=== PATIENT | female | born 1965 | race African-American/Black ===

== ENCOUNTER 2021-04-17 08:59 | Outpatient (CLI) | payer MEDICARE, BC, SELFPAY ==
--- NOTE | ~2021-04-17 | XR_ITS ---
EXAMINATION: XR knee RT 3V DATE: 04/17/2021 09:36 INDICATION: Right knee pain. TECHNIQUE: 3 views of right knee were obtained. COMPARISON: None. FINDINGS: Bone alignment is normal. No fracture. There is mild osteoarthritis of medial and patellofe moral compartments characterized by tiny marginal osteophytes. No knee joint effusion. IMPRESSION: 1. Mild right knee osteoarthritis. Reviewed, dictated and finalized at location A.
--- NOTE | ~2021-04-17 | XR_ITS ---
XR hip RT min 2V DATE: 04/17/2021 09:36 INDICATION: Right hip pain. Fall one year ago. TECHNIQUE: AP and lateral views of right hip COMPARISON: None FINDINGS: Probable healed right inferior pubic ramus fracture. No fracture or dislocation, avascular necrosis or bone destruction of the right hip is noted. Normal alignment at the pubic symphysis and sacroiliac joints.. IMPRESSION: Probable old healed right inferior pubic ramus fracture Reviewed, dictated and finalized at location B.
== END 2021-04-17 09:00 | disposition home or self-care (01) ==
PROVIDERS: PCP Family Medicine; Visit Provider Family Medicine
DX: M25.561 Pain in right knee (principal); M25.551 Pain in right hip; M17.11 Unilateral primary osteoarthritis, right knee
CPT/HCPCS: 73502; 73562

== ENCOUNTER 2024-01-10 08:13 | Outpatient (CLI) | payer MEDICARE, SELFPAY ==
--- NOTE | ~2024-01-10 | MR_ITS ---
MRI of the lumbar spine Clinical History: Chronic pain Technique: Axial T2-weighted images, and sagittal T1-weighted, T2-weighted, and and T2 fat-sat images were acquired. Findings: There is no fracture or subluxation of the lumbar spine. Vertebral bodies maintain normal h eight and alignment. No suspicious bone marrow signal abnormality seen. Intraosseous hemangioma of L3 noted. At L1-L2, L2-L3, L3-L4, L4-L5, there is no disc bulge or herniation. There is moderate to advanced fa cet joint degenerative changes these levels, worst at L4-L5. No spinal canal stenosis or neural alvaro inal narrowing at these levels. At L5-S1, there is mild degenerative disc narrowing with mild diffuse disc bulge and mild facet arthr opathy. No central canal stenosis. There is mild right neural foraminal narrowing, and mild to modera te left neural foraminal narrowing. Paravertebral soft tissues are unremarkable. Impression: Mild degenerative spondylosis, as above, worst at L5-S1. Reviewed, dictated and finalized at [facility]. Impression: Mild degenerative spondylosis, as above, worst at L5-S1.
== END 2024-01-10 08:14 ==
PROVIDERS: PCP Family Medicine; Visit Provider Family Medicine
DX: M47.897 Other spondylosis, lumbosacral region (principal); G89.4 Chronic pain syndrome; M25.562 Pain in left knee; M25.561 Pain in right knee
CPT/HCPCS: 72148; 73562

== ENCOUNTER 2025-04-26 10:33 | Outpatient (CLI) | payer MEDICARE, MEDICAID, SELFPAY ==
--- NOTE | ~2025-04-26 | MR_ITS ---
EXAMINATION: MR brain/brain stem wo con DATE: 04/26/2025 11:51 INDICATION: Amnesia TECHNIQUE: Magnetic resonance imaging (MRI) of the brain and brainstem was performed without intraven ous contrast. Sequences included sagittal and axial T1-weighted SE, axial diffusion-weighted FS SE, a xial T2*-weighted GRE, axial T2-weighted FLAIR, and axial T2-weighted FSE. Apparent diffusion coeffic ient (ADC) maps were created. COMPARISON: None. FINDINGS: There are no areas of restricted diffusion to suggest acute infarction. No intracranial hemorrhage or abnormal intracranial mass lesion. There are a few scattered small foci of nonspecific increased T2- weighted signal intensity in the cerebral white matter, predominantly involving the deep and perivent ricular white matter which is within normal limits for age and likely sequela of chronic small vessel ischemic disease.. There are no intraparenchymal signal abnormalities seen on the other pulse sequen clair. The ventricles are symmetric and normal in size. There are no abnormal extra-axial fluid collect ions. Flow voids are seen in the cerebral arteries on the T2-weighted sequences consistent with their expected patency. Left vertebral artery is dominant. Mild mucosal thickening in the bilateral ethmoi d and maxillary sinuses with small amount of dependently layering mucus in the left maxillary sinus. Visualized orbits and soft tissues are unremarkable. IMPRESSION: 1. Normal for age brain with a few scattered small foci of nonspecific cerebral white matter T2 hyper intensity which may represent sequela of chronic small vessel ischemic disease. Reviewed, dictated and finalized at location A. IMPRESSION: 1. Normal for age brain with a few scattered small foci of nonspecific cerebral white matter T2 hyperintensity which may represent sequela of chronic small ve ssel ischemic disease.
== END 2025-04-26 10:34 | disposition home or self-care (01) ==
PROVIDERS: PCP Family Medicine; Visit Provider Family Medicine
DX: R90.82 White matter disease, unspecified (principal); R90.89 Other abnormal findings on diagnostic imaging of central nervous system; R41.3 Other amnesia
CPT/HCPCS: 70551